=== PATIENT | female | born 1995 | race Caucasian/White ===

== ENCOUNTER 2018-06-15 22:38 | Inpatient (IN) | payer OTHER ==
[~2018-06-15 22:38] MED LIST: STADOL IV ONE
[2018-06-15] MEDS ORDERED: PITOCin/NS 20 UNIT/1000ML DRIP 20 UNITS/1,000 ML BAG IV SCH (23:45)
[2018-06-15] MEDS ORDERED: LACTATED RINGERS 1,000 ML IV SCH (23:45)
[2018-06-15] MEDS ORDERED: XYLOCAINE 2% INFILTRATI ONE (23:51)
[2018-06-15] MEDS ORDERED: MINERAL OIL PO PRN (23:51)
[2018-06-15] MEDS ORDERED: BRETHINE SUB-Q PRN (23:51)
[2018-06-15] MEDS ORDERED: BRETHINE IVP PRN (23:51)
[2018-06-16 00:48] LABS: Hematocrit 35.6 % (30.3-42.9); Hemoglobin 12.2 gm/dl (10.1-14.3); Mean Corpuscular HGB Conc 34 % (30-34); Mean Corpuscular Volume 89 fl (79-97); Platelet Count 202 K/mm3 (140-440); Red Blood Count 4.02 M/mm3 (3.65-5.03); Red Cell Distribution Width 15.9 % (13.2-15.2)
[2018-06-16] MEDS ORDERED: STADOL ONE (01:54)
[2018-06-16] MEDS: CLEOCIN 900 MG/50 mL 900 MG/50 ML BAG IV SCH ×2 (02:00→10:19)
--- NOTE | 2018-06-16 03:14 | History and Physical Report ---
History of Present Illness Date of examination: 06/16/18 Date of admission: 06/16/18 00:00 Chief complaint: My water broke History of present illness: EDC Confirmation: 06/15/2018 Past History : 1 Term Births: 0 Premature Births: 0 Living Children: 0 Para: 0 Mult. Births: 0 Prev : 0 Prev. attempt? 0 Aborta: 0 Elect. Ab: 0 Spont. Ab: 0 Ectopics: 0 Past Medical History: Negative Past Medical History Past Surgical History: negative Past Medical History Anesthesia Complications: negative Anemia: negative Autoimmune Disorder: negative Bleeding Disorder: negative Blood Transfusions: negative Breast Disease: negative Diabetes: negative Heart Disease: negative Hypertension: negative Hepatitis/Liver Disease: negative Kidney Disease/UTI: negative Neurologic/Epilepsy/Migraines: negative Phlebitis/Varicosities: negative Psychiatric: negative Pulmonary Disease/Asthma: negative Thyroid Disease: negative Hospitalizations: negative Surgery (Non-measurement supervisor): negative Abnormal PAP: negative JULIA Exposure: negative Infertility: negative Uterine Anomaly: negative Uterine Surgery (not C/S): negative Other Gynecologic Problems: negative Family Hx: Mother - ovarian CA, thyroid dx Father - DM Social Hx: Single 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 of genital herpes: yes Partner hx. of genital herpes: no Rash, Viral, or Febrile illness since last LMP? no Varicella/Chicken Pox Status: Immunized Genetic History Congenital Heart Defect: Mom: no Dad: no Pierre Disease: Mom: no Dad: no Thalassemia Mom: no Dad: no Neural Tube Defect Mom: no Dad: no Down's Syndrome Mom: no Dad: no Junior-Sachs Mom: no Dad: no Sickle Cell Disease/Trait Mom: no Dad: no Hemophilia Mom: no Dad: no Muscular Dystrophy Mom: no Dad: no Cystic Fibrosis Mom: no Dad: no [place]ley Chorea Mom: no Dad: no Mental Retardation Mom: no Dad: no Fragile X Mom: no Dad: no Other Genetic/Chromosomal Disorder Mom: no Dad: no Child w/other defect Mom: no Dad: no Enviromental Exposures Xray Exposure: no Medication, drug, or alcohol use since LMP: no Chemical/Other Exposure: no Exposure to Cat Liter: no Hx of Parvovirus (Fifth Disease): no Occupational Exposure to Children: none Active Medications (reviewed today): VALACYCLOVIR HCL 1 GM ORAL TABLET (VALACYCLOVIR HCL) 1 tab po qd x5days as needed 03/12 1-20 MG-MCG ORAL TABLET (NORETHIN IVA-ETH ESTRAD-FE) 1 tab po qday Current Allergies (reviewed today): AMOXICILLIN (AMOXICILLIN CAPS) (Critical) Past History Past Medical History: other (see HPI) Past Surgical History: other (see HPI) REGIONAL SALES ENGINEER History: herpes Family/Genetic History: other (see HPI) - Obstetrical History Expected Date of Delivery: 06/15/18 Actual Gestation: 40 Week(s) 1 Day(s) : 1 Para: 0 Hx # Term Pregnancies: 0 Number of Pregnancies: 0 Spontaneous Abortions: 0 Induced : 0 Number of Living Children: 0 Medications and Allergies Allergies Allergy/AdvReac Type Severity Reaction Status Date / Time amoxicillin Allergy Mild Hives Verified 06/12/18 12:31 Active Meds: Active Medications Ephedrine Sulfate (Ephedrine Sulfate) 10 mg IV Q2M PRN PRN Reason: Hypotension Clindamycin HCl (Cleocin 900 Mg/50 Ml) 900 mg in 50 mls @ 100 mls/hr IV Q8HR JOSIAH; Protocol Lactated Ringer's (Lactated Ringers) 1,000 mls @ 125 mls/hr IV DIRECT JOSIAH Oxytocin/Sodium Chloride (Pitocin/Ns 20 Unit/1000ml Drip) 20 units in 1,000 mls @ 125 mls/hr IV DIRECT JOSIAH Mineral Oil (Mineral Oil) 30 ml PO QHS PRN PRN Reason: Constipation Terbutaline Sulfate (Brethine) 0.25 mg SUB-Q ONCE PRN PRN Reason: Hyperstimulation/Hypertonicity Terbutaline Sulfate (Brethine) 0.25 mg IVP ONCE PRN PRN Reason: Hyperstimulation/Hypertonicity Review of Systems All systems: negative - Vital Signs Vital signs: Vital Signs Pulse BP 106 H 130/85 06/15/18 22:58 06/15/18 22:58 Temp Pulse Resp BP Pulse Ox 86 142/92 06/16/18 02:45 06/16/18 02:45 - Physical Exam Breasts: Positive: normal Cardiovascular: Regular rate Lungs: Positive: Clear to auscultation, Normal air movement Abdomen: Positive: normal appearance, soft Genitourinary (Female): Positive: normal external genitalia (no HSV lesions n oted), normal perenium Vulva: both: normal Vagina: Positive: normal moisture Uterus: Positive: normal size, normal contour Anus/Rectum: Positive: normal perianal skin Extremities: Positive: normal Deep Tendon Reflex Grade: Normal +2 - Obstetrical FHR: auscultation normal Uterine Contraction Monitor Mode: External Cervical Dilatation: 4 (MEC fluid) Cervical Effacement Percentage: 90 station: -3 Uterine Contraction Pattern: Irregular Uterine Tone Measurement Phase: Resting Uterine Contraction Intensity: Mild Results Result Diagrams: 06/16/18 00:00 06/16/18 00:00 Abnormal lab results 06/16/18 Range/Units 00:00 RDW 15.9 H (13.2-15.2) % All other labs normal. Assessment and Plan 23y/o g1P)0 @ 40+1, arrived with SROM around 2200 last night with mec fluid. Pt unsure if she wants epidural - aware of options and limitation of pain management. b/p elevated in triage - will get Pre-e labs and continue to monito r. - Patient Problems (1) 40 weeks gestation of Current Visit: Yes Status: Acute (2) BMI 37.0-37.9, adult Current Visit: Yes Status: Acute (3) GBS (group B Streptococcus carrier), +RV culture, currently Current Visit: Yes Status: Acute Plan to address problem: Cleocin q8hr until delivery (4) HSV-2 (herpes simplex virus 2) infection Current Visit: Yes Status: Acute (5) SROM (spontaneous rupture of membranes) Current Visit: Yes Status: Acute Plan to address problem: Limit SVE check temp q2h monitor for s/s infection (6) Gestational hypertension Current Visit: Yes Status: Acute Qualifiers: Trimester: third trimester Qualified Code(s): O13.3 - Gestational [-induced] hypertension without significant proteinuria, third trimester
[2018-06-16 04:38] LABS: Alanine Aminotransferase 11 units/L (7-56)
[2018-06-16 04:52] LABS: Uric Acid 6.6 mg/dL (3.5-7.6)
[2018-06-16] MEDS ORDERED: STADOL IV PRN (05:02)
[2018-06-16] MEDS ORDERED: PITOCin/NS 30 UNIT/500ML 30 UNITS/500 ML BAG IV SCH (06:00)
--- NOTE | 2018-06-16 06:53 | Progress Note ---
Assessment and Plan patient requesting epidural - IVF bolusing and LEASE OUT MAN called for placement. SVE now 7/100/0 with moulding present on head. Unable to adequately assess pelvis at this time. elevated b/p noted seems to be r/t to pain. will continue to monitor. Pt is obese with large panis and moving with ctx making monitoring difficult. ISE placed without difficulty - cord not working. RN to find new cord. Will hold pit order at this time due to patient making adequate change. - Patient Problems (1) 40 weeks gestation of Current Visit: Yes Status: Acute (2) BMI 37.0-37.9, adult Current Visit: Yes Status: Acute (3) GBS (group B Streptococcus carrier), +RV culture, currently Current Visit: Yes Status: Acute (4) HSV-2 (herpes simplex virus 2) infection Current Visit: Yes Status: Acute Plan to address problem: no lesions (5) SROM (spontaneous rupture of membranes) Current Visit: Yes Status: Acute (6) Gestational hypertension Current Visit: Yes Status: Acute Qualifiers: Trimester: third trimester Qualified Code(s): O13.3 - Gestational [-induced] hypertension without significant proteinuria, third trimester Plan to address problem: pre-e labs normal will send UA off cath after epidural b/p currently 140-150/80-90 - patient in pain and uncontrolled in the bed Will continue to monitor Subjective - Subjective Date of service: 06/16/18 Principal diagnosis: IUP @ 40+1, Laboring, meconium Interval history: EDC Confirmation: 06/15/2018 Past History : 1 Term Births: 0 Premature Births: 0 Living Children: 0 Para: 0 Mult. Births: 0 Prev : 0 Prev. attempt? 0 Aborta: 0 Elect. Ab: 0 Spont. Ab: 0 Ectopics: 0 Past Medical History: Negative Past Medical History Past Surgical History: negative Past Medical History Anesthesia Complications: negative Anemia: negative Autoimmune Disorder: negative Bleeding Disorder: negative Blood Transfusions: negative Breast Disease: negative Diabetes: negative Heart Disease: negative Hypertension: negative Hepatitis/Liver Disease: negative Kidney Disease/UTI: negative Neurologic/Epilepsy/Migraines: negative Phlebitis/Varicosities: negative Psychiatric: negative Pulmonary Disease/Asthma: negative Thyroid Disease: negative Hospitalizations: negative Surgery (Non-flow machine operator): negative Abnormal PAP: negative JULIA Exposure: negative Infertility: negative Uterine Anomaly: negative Uterine Surgery (not C/S): negative Other Gynecologic Problems: negative Family Hx: Mother - ovarian CA, thyroid dx Father - DM Social Hx: Single 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 of genital herpes: yes Partner hx. of genital herpes: no Rash, Viral, or Febrile illness since last LMP? no Varicella/Chicken Pox Status: Immunized Genetic History Congenital Heart Defect: Mom: no Dad: no Pierre Disease: Mom: no Dad: no Thalassemia Mom: no Dad: no Neural Tube Defect Mom: no Dad: no Down's Syndrome Mom: no Dad: no Junior-Sachs Mom: no Dad: no Sickle Cell Disease/Trait Mom: no Dad: no Hemophilia Mom: no Dad: no Muscular Dystrophy Mom: no Dad: no Cystic Fibrosis Mom: no Dad: no [place] Chorea Mom: no Dad: no Mental Retardation Mom: no Dad: no Fragile X Mom: no Dad: no Other Genetic/Chromosomal Disorder Mom: no Dad: no Child w/other defect Mom: no Dad: no Enviromental Exposures Xray Exposure: no Medication, drug, or alcohol use since LMP: no Chemical/Other Exposure: no Exposure to Cat Liter: no Hx of Parvovirus (Fifth Disease): no Occupational Exposure to Children: none Active Medications (reviewed today): VALACYCLOVIR HCL 1 GM ORAL TABLET (VALACYCLOVIR HCL) 1 tab po qd x5days as needed 03/12 1-20 MG-MCG ORAL TABLET (NORETHIN IVA-ETH ESTRAD-FE) 1 tab po qday Current Allergies (reviewed today): AMOXICILLIN (AMOXICILLIN CAPS) (Critical) Patient reports: loss of fluid, contractions Objective - Vital Signs Vital Signs: Vital Signs - 12hr 06/15/18 06/16/18 06/16/18 22:58 02:45 04:51 Pulse Rate 106 H 86 95 H Blood Pressure 130/85 142/92 179/105 06/16/18 06/16/18 06/16/18 04:53 05:08 05:23 Pulse Rate 93 H 90 92 H Blood Pressure 143/87 157/98 152/93 06/16/18 06/16/18 05:38 05:53 Pulse Rate 97 H 92 H Blood Pressure 149/93 154/98 - Exam Breasts: normal Cardiovascular: Regular rate Lungs: Clear to auscultation, Normal air movement Abdomen: Present: normal appearance, soft Vulva: both: normal Uterus: Present: normal FHR: category 2 Uterine Contraction Monitor Mode: External Cervical Dilatation: 7 (thick mec fluid) Cervical Effacement Percentage: 100 station: 0 Uterine Contraction Frequency (min): 2-4 Uterine Contraction Duration: 60 Uterine Contraction Pattern: Regular Uterine Tone Measurement Phase: Contraction Uterine Contraction Intensity: Strong/Firm - Labs Labs: Abnormal Labs 06/16/18 06/16/18 00:00 00:00 RDW 15.9 H Creatinine 0.6 L Lactate Dehydrogenase 232 H Laboratory Results - last 24 hr 06/16/18 06/16/18 06/16/18 00:00 00:00 00:00 WBC 10.9 RBC 4.02 Hgb 12.2 Hct 35.6 MCV 89 MCH 30 MCHC 34 RDW 15.9 H Plt Count 202 Creatinine Estimated GFR Uric Acid AST 26 ALT Lactate Dehydrogenase Blood Type O POSITIVE Antibody Screen Negative 06/16/18 00:00 WBC RBC Hgb Hct MCV MCH MCHC RDW Plt Count Creatinine 0.6 L Estimated GFR > 60 Uric Acid 6.6 AST ALT 11 Lactate Dehydrogenase 232 H Blood Type Antibody Screen
[2018-06-16] MEDS ORDERED: NARCAN 2 MG/2 ML IV PRN (07:13)
--- NOTE | 2018-06-16 07:14 | Anesthesia Consultation ---
Anesthesia Consult and Med Hx - Airway Anesthetic Teeth Evaluation: Good ROM Head & Neck: Adequate Mental/Hyoid Distance: Adequate Mallampati Class: Class I Intubation Access Assessment: Good - Pulmonary Exam CTA: Yes - Cardiac Exam Cardiac Exam: RRR - Pre-Operative Health Status ASA Pre-Surgery Classification: ASA2 Proposed Anesthetic Plan: Epidural - Pulmonary Hx Asthma: No - Cardiovascular System Hx Hypertension: No - Central Nervous System Hx Seizures: No Hx Psychiatric Problems: No - Endocrine Hx Renal Disease: No Hx Hypothyroidism: No Hx Hyperthyroidism: No - Hematic Hx Anemia: No Hx Sickle Cell Disease: No - Other Systems Hx Alcohol Use: No
--- NOTE | 2018-06-16 07:15 | Anesthesia Day of Surgery ---
Anesthesia Day of Surgery - Day of Surgery Patient Examined: Yes Patient H&P Reviewed: Yes Patient is NPO: Yes Beta Blockers: No Cardiac Clearance: No Pulmonary Clearance: No Subhash's Test: N/A
[2018-06-16] MEDS ORDERED: MARCAINE 0.25% INFILTRATI ONE (07:18)
[2018-06-16] MEDS ORDERED: fentaNYL-BUPIV 2 MCG/ML-0.125% 200 MCG/100 ML BAG EPIDURAL SCH (08:00)
--- NOTE | 2018-06-16 08:25 | Progress Note ---
Assessment and Plan 23y.o. 40w1d admitted for labor. Patient is currently comfortable in bed s/p epidural placement. FHTs via FSE tracing appropriately. SVE 9.5/100/0, caput noted. Attempted to place IUPC, unsuccessful. Will continue to monitor contractions via TOCO. Plan for frequent position changes to further head descent. BPs stable at this time, no c/o OSBORNE, visual disturbances, RUQ pain from patient, PIH assessment WNL. RN placing brink and collecting urine to send to lab at this time. DWP will continue plans for , but if descent is not made we may discuss other routes for delivery such as c/s. Patient verbalizes understanding. Subjective - Subjective Date of service: 06/16/18 Principal diagnosis: IUP @ 40+1, Laboring, meconium Patient reports: loss of fluid, movement normal, contractions Objective - Vital Signs Vital Signs: Vital Signs - 12hr 06/15/18 06/16/18 06/16/18 22:58 02:00 02:45 Pulse Rate 106 H 86 Respiratory 20 Rate Blood Pressure 130/85 142/92 O2 Sat by Pulse Oximetry 06/16/18 06/16/18 06/16/18 04:51 04:53 05:08 Pulse Rate 95 H 93 H 90 Respiratory Rate Blood Pressure 179/105 143/87 157/98 O2 Sat by Pulse Oximetry 06/16/18 06/16/18 06/16/18 05:23 05:38 05:45 Pulse Rate 92 H 97 H Respiratory 22 Rate Blood Pressure 152/93 149/93 O2 Sat by Pulse Oximetry 06/16/18 06/16/18 06/16/18 05:53 07:14 07:19 Pulse Rate 92 H 85 97 H Respiratory Rate Blood Pressure 154/98 O2 Sat by Pulse 98 96 Oximetry 06/16/18 06/16/18 06/16/18 07:20 07:21 07:22 Pulse Rate 103 H 184 H 90 Respiratory Rate Blood Pressure 158/109 163/96 O2 Sat by Pulse 94 Oximetry 06/16/18 06/16/18 06/16/18 07:24 07:26 07:28 Pulse Rate 97 H 87 90 Respiratory Rate Blood Pressure 169/106 146/87 152/89 O2 Sat by Pulse 98 Oximetry 06/16/18 06/16/18 06/16/18 07:29 07:30 07:32 Pulse Rate 86 102 H 90 Respiratory Rate Blood Pressure 171/85 153/88 O2 Sat by Pulse 97 Oximetry 06/16/18 06/16/18 06/16/18 07:34 07:36 07:38 Pulse Rate 94 H 103 H 116 H Respiratory Rate Blood Pressure 144/82 150/97 157/83 O2 Sat by Pulse 95 91 Oximetry 06/16/18 06/16/18 06/16/18 07:39 07:40 07:42 Pulse Rate 94 H 90 98 H Respiratory Rate Blood Pressure 141/77 144/85 O2 Sat by Pulse 95 Oximetry 06/16/18 06/16/18 06/16/18 07:44 07:46 07:48 Pulse Rate 89 91 H 96 H Respiratory Rate Blood Pressure 125/77 126/80 124/74 O2 Sat by Pulse 98 Oximetry 06/16/18 06/16/18 06/16/18 07:49 07:50 07:52 Pulse Rate 97 H 90 95 H Respiratory Rate Blood Pressure 124/74 123/76 O2 Sat by Pulse 99 Oximetry 06/16/18 06/16/18 06/16/18 07:54 07:55 07:56 Pulse Rate 86 89 96 H Respiratory Rate Blood Pressure 125/78 126/78 O2 Sat by Pulse 97 94 Oximetry 06/16/18 06/16/18 06/16/18 07:58 07:59 08:00 Pulse Rate 97 H 100 H 95 H Respiratory Rate Blood Pressure 113/70 120/77 O2 Sat by Pulse 99 Oximetry 06/16/18 06/16/18 06/16/18 08:02 08:04 08:06 Pulse Rate 113 H 99 H Respiratory Rate Blood Pressure 121/76 121/76 121/73 O2 Sat by Pulse 96 Oximetry 06/16/18 06/16/18 06/16/18 08:08 08:09 08:10 Pulse Rate 112 H 91 H 110 H Respiratory Rate Blood Pressure 111/68 115/73 O2 Sat by Pulse 97 Oximetry 06/16/18 08:12 Pulse Rate 93 H Respiratory Rate Blood Pressure 116/69 O2 Sat by Pulse Oximetry - Exam Breasts: normal Cardiovascular: Regular rate, Normal S1, Normal S2 Lungs: Clear to auscultation Abdomen: Present: normal appearance, soft. Absent: distention, tenderness Vulva: both: normal (pt denies any herpes lesions or prodromal symptoms. No lesions visualized on examination) Uterus: Present: normal FHR: auscultation normal FHR comments: FSE Uterine Contraction Monitor Mode: External Cervical Dilatation: 9.5 Cervical Effacement Percentage: 100 station: 0 Uterine Contraction Frequency (min): 3-5 Uterine Contraction Duration: 60-90 Uterine Contraction Pattern: Regular Uterine Tone Measurement Phase: Contraction Uterine Contraction Intensity: Moderate Extremities: normal Deep Tendon Reflex Grade: Normal +2 - Labs Labs: Abnormal Labs 06/16/18 06/16/18 00:00 00:00 RDW 15.9 H Creatinine 0.6 L Lactate Dehydrogenase 232 H Laboratory Results - last 24 hr 06/16/18 06/16/18 06/16/18 00:00 00:00 00:00 WBC 10.9 RBC 4.02 Hgb 12.2 Hct 35.6 MCV 89 MCH 30 MCHC 34 RDW 15.9 H Plt Count 202 Creatinine Estimated GFR Uric Acid AST 26 ALT Lactate Dehydrogenase Blood Type O POSITIVE Antibody Screen Negative 06/16/18 00:00 WBC RBC Hgb Hct MCV MCH MCHC RDW Plt Count Creatinine 0.6 L Estimated GFR > 60 Uric Acid 6.6 AST ALT 11 Lactate Dehydrogenase 232 H Blood Type Antibody Screen
[2018-06-16 09:46] LABS: Bilirubin,Urine Negative (Negative); Blood,Urine Negative (Negative); Color,Urine Straw (Yellow)
[2018-06-16 09:47] LABS: Protein,Urine <15 mg/dL mg/dL (Negative); Urobilinogen,Urine < 2.0 mg/dL (<2.0)
[2018-06-16 09:56] LABS: Bacteria,Urine 1+ /HPF (Negative)
[2018-06-16] MEDS ORDERED: CYTOTEC ONE ×2 (12:38)
--- NOTE | 2018-06-16 12:49 | Procedure Note ---
OB Delivery Note - Delivery Date of Delivery: 06/16/18 Senior Electrical Project Manager: YVROSE NUGENT (Dr. Larios present at bedside at time of delivery) Estimated blood loss: 500cc - Vaginal Delivery position: OA (PAMELA) Intrapartum events: meconium (NICU/Resus team present at time of delivery) Delivery augmentation: pitocin Delivery monitor: external uterine, internal FHT Route of delivery: Delivery placenta: spontaneous Delivery cord: nuchal cord (x1, tight, somersault through at delivery) Episiotomy: none Delivery laceration: none Anesthesia: epidural Delivery comments: Significant vaginal bleeding noted post delivery. Fundus firms with massage, small clots expressed. Manual sweep of uterus yields few small clots.Pit open to IV. 800 cytotec given NE. Fundus is firm, bleeding is scant. total EBL 500. hemorrhage protocol, pad counts to be initiated by RN. VSS. Mother and baby stable condition LDR. - A at 1 minute: 8 at 5 minutes: 9 Infant Gender: Male
[2018-06-16] MEDS ORDERED: CYTOTEC PR ONE ×2 (16:00→17:00)
[2018-06-16] MEDS ORDERED: LANSINOH TP PRN (18:14)
[2018-06-16] MEDS ORDERED: PHENERGAN PO PRN (18:14)
[2018-06-16] MEDS ORDERED: MILK OF MAGNESIA PO PRN (18:14)
[2018-06-16] MEDS ORDERED: TYLENOL PO PRN (18:14)
[2018-06-16] MEDS ORDERED: BENADRYL PO PRN (18:14)
[2018-06-16] MEDS ORDERED: ZOFRAN IV PRN (18:14)
[2018-06-16] MEDS ORDERED: PITOCin/NS 20 UNIT/1000ML DRIP 20 UNITS/1,000 ML BAG IV SCH (18:14)
[2018-06-16] MEDS ORDERED: TUCKS PAD TP PRN (18:14)
[2018-06-16] MEDS ORDERED: DULCOLAX PR PRN (18:14)
[2018-06-16] MEDS ORDERED: SODIUM CHLORIDE FLUSH SYRINGE 10 ML IV NR (18:14)
[2018-06-17] MEDS: IBUPROFEN PO SCH ×5 (01:17→23:00)
[2018-06-17 01:51] LABS: Hematocrit 26.5 % (30.3-42.9)
--- NOTE | 2018-06-17 08:29 | Progress Note ---
Assessment and Plan POD 1 s/p . Patient reports feeling well, no complaints. Fundus is firm, ML, U/1, vaginal bleeding is small. Patient reports few small blood clots yesterday evening when up to bathroom. Denies any recent, and no increase in vaginal bleeding since. DWP blood loss and initiation of iron. She denies any dizziness or feeling faint with position changes or ambulation. HR has been low 100s. BP stable. Will continue to monitor VS and bleeding. Patient reports pain is well controlled. Breast feeding is going well, supplementing with formula as needed. Continue POC. Subjective - Subjective Date of service: 06/17/18 Principal diagnosis: POD 1 s/p Patient reports: appetite normal, voiding normally, pain well controlled, ambulating normally : doing well, nursing well, bottle feeding Objective - Vital Signs Latest vital signs: Vital Signs Temp Pulse Resp BP BP Pulse Ox 06/17/18 07:02 98.5 F 70 18 108/63 06/17/18 01:40 98.7 F 98 H 18 114/63 99 06/17/18 01:17 18 06/16/18 20:07 99.2 F 109 H 18 124/81 98 06/16/18 17:42 110 H 139/93 99 06/16/18 14:42 99.5 F 105 H 18 124/86 100 06/16/18 13:59 103 H 107/78 06/16/18 13:44 112 H 122/76 06/16/18 13:28 105 H 111/72 06/16/18 13:14 110 H 114/63 06/16/18 12:59 126 H 114/66 06/16/18 12:44 114 H 116/70 06/16/18 12:30 123 H 132/63 06/16/18 12:29 118 H 144/59 06/16/18 12:14 129 H 151/59 06/16/18 12:05 110 H 125/65 06/16/18 12:00 99.8 F H 06/16/18 11:45 103 H 123/76 06/16/18 11:28 101 H 126/77 06/16/18 11:14 98 H 120/71 06/16/18 10:59 105 H 132/97 06/16/18 10:44 89 121/73 06/16/18 10:36 98.4 F 06/16/18 10:30 85 113/70 06/16/18 10:13 94 H 112/65 06/16/18 09:58 87 104/58 06/16/18 09:43 86 99/54 06/16/18 09:29 83 110/61 06/16/18 09:13 88 124/76 06/16/18 08:59 82 122/76 06/16/18 08:44 83 118/72 06/16/18 08:29 90 109/60 Intake and Output 06/16/18 06/17/18 06/17/18 23:59 07:59 15:59 Intake Total 360 840 Output Total 1800 Balance -1440 840 Intake: Oral 480 Intake, Free Water 360 360 Output: Urine 1800 Void 1800 Other: Total, Intake Amount 480 Total, Output Amount 500 # Voids Void 1 1 - Exam Breasts: Present: normal Cardiovascular: Present: Regular rate, Normal S1, Normal S2 Lungs: Present: Clear to auscultation Abdomen: Present: normal appearance, soft, normal bowel sounds Vulva: both: normal Uterus: Present: normal, firm Extremities: Present: normal Incision: Present: normal, dry, intact - Labs Labs: Abnormal lab results 06/17/18 Range/Units 01:39 Hgb 9.0 L D (10.1-14.3) gm/dl Hct 26.5 L D (30.3-42.9) %
[2018-06-17] MEDS: COLACE PO SCH ×2 (10:30→21:50)
[2018-06-17] MEDS: FEOSOL PO SCH ×2 (10:30→21:50)
[2018-06-18] MEDS: IBUPROFEN PO SCH (05:20)
[2018-06-18 10:28] VITALS: BP 125/76
[2018-06-18] MEDS: FEOSOL PO SCH (10:58)
--- NOTE | 2018-06-18 11:47 | Discharge Summary ---
Providers - Providers Date of Admission: 06/16/18 00:00 Date of discharge: 06/18/18 Attending physician: JESUS PLAZA 06/16/18 18:14 Consult to Cold Roll Operator [CONS] Routine Reason For Exam: assistance with , SNS Primary care physician: JESUS PLAZA Hospitalization Reason for admission: IUP at term Delivery: Episiotomy: none Laceration: none complications: none Discharge diagnosis: IUP at term delivered baby: female Hospital course: Asymptomatic anemia, o/w no problems. Resting in bed, minimal bleeding, no complaints. Desires d/c home Condition at discharge: Good Disposition: DC-01 TO HOME OR SELFCARE - Discharge Diagnoses (1) (spontaneous vaginal delivery) Status: Acute (2) Anemia Status: Acute Qualifiers: Other causes of anemia: acute posthemorrhagic Comment: asymptomatic Plan - Discharge Medications Prescriptions: Docusate Sodium [Colace] 100 mg PO BID PRN #60 capsule PRN Reason: Constipation Ferrous Sulfate [Feosol 325 MG tab] 325 mg PO BID #60 tablet - Provider Discharge Summary Activity: no sex for 6 weeks, no heavy lifting 4 weeks, no strenuous exercise Diet: routine Instructions: routine Additional instructions: [] Smoking cessation referral if applicable(refer to patient education folder for contact #) [] Refer to [facility]'s [facility] Booklet Call your doctor immediately for: * Fever > 100.5 * Heavy vaginal bleeding ( >1 pad per hour) * Severe persistent headache * Shortness of breath * Reddened, hot, painful area to leg or breast * Drainage or odor from incision. * Keep incision clean and dry at all times and follow doctor's instructions regarding bathing/showering - Follow up plan Follow up: JESUS PLAZA MD [Primary Care Provider] - (4-6weeks. If you desires to have your son circumcised, call the office tomorrow to schedule an appointment)
== END 2018-06-18 16:21 | disposition home or self-care (01) | DRG 806 ==
LOC: TRG 22:38 → LD 06-16 → TRG 06-16 → OB 06-16 14:32
PROVIDERS: ADMIT Obstetrics & Gynecology; ATTEND Obstetrics & Gynecology
PROC: 10E0XZZ Delivery of Products of Conception, External Approach (ICD-10-PCS; principal; 2018-06-16)
PROC: 10H07YZ Insertion of Other Device into Products of Conception, Via Natural or Artificial Opening (ICD-10-PCS; 2018-06-16)
PROC: 3E0R3BZ Introduction of Anesthetic Agent into Spinal Canal, Percutaneous Approach (ICD-10-PCS; 2018-06-16)
PROC: 00HU33Z Insertion of Infusion Device into Spinal Canal, Percutaneous Approach (ICD-10-PCS; 2018-06-16)
DX: O99.824 Streptococcus B carrier state complicating childbirth (principal); O98.52 Other viral diseases complicating childbirth; Z37.0 Single live birth; D62 Acute posthemorrhagic anemia; O13.4 Gestational [pregnancy-induced] hypertension without significant proteinuria, complicating childbirth; O77.0 Labor and delivery complicated by meconium in amniotic fluid; B00.9 Herpesviral infection, unspecified; O69.1XX0 Labor and delivery complicated by cord around neck, with compression, not applicable or unspecified; Z83.49 Family history of other endocrine, nutritional and metabolic diseases; Z80.41 Family history of malignant neoplasm of ovary; Z3A.40 40 weeks gestation of pregnancy; O90.81 Anemia of the puerperium
CPT/HCPCS: 36415; 81001; 82565; 83615; 84450; 84460; 84550; 85014; 85018; 85027; 86592; 86850; 86900; 86901; 88307; G0378; A6250; J0595; J2590; J7120